=== PATIENT | male | born 1945 | race Caucasian/White ===

== ENCOUNTER 2021-08-31 20:55 | Inpatient (IN) | payer MEDICARE ==
[~2021-08-31] VITALS: Ht 177.8 cm; Wt 64.9 kg
--- NOTE | ~2021-08-31 | EMS ---
[address] [address] EMS Patient Care Report Name: MARCY MCINTOSH Room #: 170-5 ADM IN M.R.#: [id number] Admission: 09/01/21 Attend Phys: Michel Powell MD Discharge: Date of : 41 Report #: [id number] THIS REPORT FOR: //name// Report Transmitted: 09/01/2021 13:18 EMS Care Summary [place], [place]/[facility] Incident [id number] @ 08/31/2021 20:31 Incident Location [address] [place], [place] [id number] Patient MARCY MCINTOSH Male, 75 Years 1945 Patient Address [address] [place], [place] [id number] Patient History None Reported, Patient Allergies No known allergies, Patient Medications None Reported, Chief Complaint weakness Disposition Transported No Lights/[place] Dispatch Reason Sick Person Transported To [facility] Narrative Upon arrival PT was standing outside of apartment complex. PT had a CC of weakness and stated that his had just been diagnosed with covid-19 and PT [address] [address] EMS Patient Care Report Name: MARCY MCINTOSH Room #: 170-5 ADM IN M.Ezequiel.#: [id number] Admission: 09/01/21 Attend Phys: Michel Powell MD Discharge: Date of : 41 Report #: [id number] believes he has contracted the virus as well. PT was assisted to stretcher and taken to back of ambulance for further medical evaluation and intervention. PT was then monitored while en route for any change in condition. Initial Vitals @20:42P: 66,R: 18,BP: 177/78,Pain: 0/10,GCS: 15,SpO2: 94,Revised Trauma: 12, @20:51P: 90,R: 18,BP: 174/78,Pain: 0/10,GCS: 15,SpO2: 94,Revised Trauma: 12, Assessments @20:42MENTAL:No Abnormalities,SKIN:No Abnormalities,HEENT:Head/Face: No Abnormalities,Eyes: No Abnormalities,Neck/Airway: No Abnormalities,LUNG SOUNDS:General: No Abnormalities,Left Upper: No Abnormalities,Right Upper: No Abnormalities,Left Lower: No Abnormalities,Right Lower: No Abnormalities,ABDOMEN:General: No Abnormalities,Left Upper: No Abnormalities,Right Upper: No Abnormalities,Left Lower: No Abnormalities,Right Lower: No Abnormalities,PELVIS//GI:No Abnormalities,EXTREMITIES:Capillary Refill: Left Upper: < 2 Sec,Capillary Refill: Right Upper: < 2 Sec,PULSE:Radial: 2+ Normal,NEURO:No Abnormalities, Impression Generalized Weakness Procedures @20:42 ALS Assessment Response: UnchangedSucceeded Timeline 20:29,Call Received 20:29,Dispatch Notified 20:31,Dispatched 20:31,En Route 20:41,On Scene 20:42,At Patient 20:42,BP: 177/78 M,PULSE: 66,RR: 18 R,SPO2: 94 Ox,ETCO2: ,BG: ,PAIN: 0,GCS: 15, 20:42,Depart Scene 20:42,ALS Assessment,Response: UnchangedSucceeded, 20:51,BP: 174/78 M,PULSE: 90,RR: 18 R,SPO2: 94 Ox,ETCO2: ,BG: ,PAIN: 0,GCS: 15, 20:52,At Destination 21:01,Call Closed Disclaimer v1.1 Copyright 2020 [employer] This EMS Care Summary contains data elements from the applicable legal record (which may be displayed differently). It is designed to provide pertinent information for the following purposes: continuity of care, clinical quality, and state data reporting. The complete legal record is available to ED staff [address] [address] EMS Patient Care Report Name: MARCY MCINTOSH Room #: 170-5 ADM IN M.R.#: [id number] Admission: 09/01/21 Attend Phys: Michel Powell MD Discharge: Date of : 41 Report #: [id number] and administrators of the receiving hospital in [employer]'s Patient Tracker. All data is provided "as is."
[2021-08-31 20:56] VITALS: BP 179/83
[2021-08-31 21:51] LABS: BE(vivo) -2.2 mmol/L (-2 to +3); PO2 68.4 mmHg (80.0-100.0); pH 7.471 (7.360-7.450)
[2021-08-31 22:02] LABS: URINE BILIRUBIN NEGATIVE (Negative); URINE BLOOD 3+ (Negative); URINE CLARITY CLEAR; URINE COLOR YELLOW; URINE GLUCOSE-RANDOM* NEGATIVE (Negative); URINE KETONES TRACE (Negative); URINE LEUKOCYTES-REFLEX NEGATIVE (Negative); URINE NITRITE-REFLEX NEGATIVE (Negative); URINE PROTEIN (DIPSTICK) NEGATIVE (Negative); URINE UROBILINOGEN 0.2 E.U./dl (0.2-1.0)
[2021-08-31 22:29] LABS: ABSOLUTE NEUTROPHILS 4.1 thou/uL (1.4-8.2); BASOPHILS 0.3 % (0.0-2.0); HEMATOCRIT 42.6 % (42.0-52.0); HEMOGLOBIN 14.2 gm/dL (14.0-18.0); LYMPHOCYTES 10.6 % (24.0-44.0); MCH 32.4 pg (26.0-34.0); MCHC 33.4 g/dL (28.0-37.0); MONOCYTES 9.6 % (1.0-8.0); PLATELET COUNT 154 thou/uL (150-400); POLYS 79.5 % (36.0-66.0); RBC 4.39 mil/uL (4.50-6.00); RDW 12.9 % (10.5-14.5); WBC 5.1 thou/uL (4.0-11.0)
[2021-08-31 22:39] LABS: CALCIUM 8.5 mg/dL (8.5-10.1); POTASSIUM 3.8 mmol/L (3.5-5.1)
[2021-08-31 22:49] LABS: ALBUMIN 3.1 g/dL (3.4-5.0); DIRECT BILIRUBIN 0.2 mg/dL (<0.1-0.2); MAGNESIUM 1.5 mg/dL (1.8-2.4); PHOSPHORUS 2.8 mg/dL (2.5-4.9); TOTAL BILIRUBIN 0.6 mg/dL (0.2-1.0); TOTAL PROTEIN 6.1 g/dL (6.4-8.2)
[2021-08-31 23:08] LABS: SQUAMOUS 4-10 Moderate /LPF (0-3); URINE WBC-REFLEX 0-5 Rare /HPF (0-5)
[2021-08-31 23:09] LABS: BACTERIA-REFLEX 1-9 Few /HPF (None Seen); CASTS None Seen /LPF (None Seen); CRYSTALS None Seen /LPF (None Seen); MUCUS 0-3 Light strn/LPF (None Seen)
[2021-09-01] MEDS ORDERED: SYMBICORT160 MCG/4. INH (02:04)
[2021-09-01] MEDS ORDERED: TOVIAZ8 MG PO (02:04)
[2021-09-01] MEDS ORDERED: ARICEPT10 M1 PO (02:04)
[2021-09-01] MEDS ORDERED: ATORVASTATIN CA80 MG PO (02:05)
[2021-09-01] MEDS ORDERED: FLOMAX0.4 MG PO (02:05)
[2021-09-01 06:38] LABS: HEMATOCRIT 40.1 % (42.0-52.0); HEMOGLOBIN 13.6 gm/dL (14.0-18.0); MCH 32.9 pg (26.0-34.0); MCV 96.8 fL (80.0-100.0); RBC 4.14 mil/uL (4.50-6.00); RDW 12.9 % (10.5-14.5); WBC 5.5 thou/uL (4.0-11.0)
[2021-09-01 06:49] LABS: ALBUMIN 2.8 g/dL (3.4-5.0); CREATININE 0.9 mg/dL (0.7-1.3); POTASSIUM 3.6 mmol/L (3.5-5.1); TOTAL BILIRUBIN 0.5 mg/dL (0.2-1.0); TOTAL PROTEIN 5.6 g/dL (6.4-8.2)
--- NOTE | 2021-09-01 07:07 | EKG ---
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
[2021-09-01 15:20] VITALS: BP 146/50
[2021-09-01 19:41] VITALS: BP 137/83
[2021-09-01 23:44] VITALS: BP 127/71
[2021-09-02 05:20] VITALS: BP 125/66
[2021-09-02 07:24] VITALS: BP 131/59
--- NOTE | 2021-09-02 08:43 | HC ---
[facility] [place] [address] CONSULTATION Name: MARCY MCINTOSH Room #: 350-P ADM IN ..#: [id number] Admission: 09/01/21 Attend Phys: Michel Powell MD Discharge: Date of : 41 Report #: [id number] THIS REPORT FOR: cc: [facility] - Clinic physician unknown [facility] - Clinic physician unknown Vasile Garcia MD ~ DATE OF SERVICE: 09/01/2021 INFECTIOUS DISEASE CONSULTATION ATTENDING PHYSICIAN: Dr. Powell. REASON FOR EVALUATION: COVID-19 infection. HISTORY OF PRESENT ILLNESS: Chart reviewed. The patient examined. This is a 75-year-old with known history of chronic obstructive pulmonary disease with previous history of lung cancer. He had received chemotherapy, although not currently for the past several months, who was confirmed to have COVID-19 infection. He has been ill for the last several days. Admits to some dyspnea and some degree of cough that has been nonproductive. He had a poor appetite and p.o. intake. Does have some nausea with dry heaves, some loose stools, generally progressive weakness. He was evaluated. A chest x-ray was fairly unremarkable except for borderline saturations on room air. Lactic acid is 1.0. Procalcitonin less than 0.05. Blood cultures collected on admission are negative thus far. He was empirically started on therapy with ceftriaxone and azithromycin. ALLERGIES: None known. CURRENT MEDICATIONS: Currently include atorvastatin, enoxaparin, thiamine, multivitamin, tamsulosin, donepezil, famotidine, zinc, cholecalciferol, ascorbic acid, dexamethasone, budesonide, azithromycin, ceftriaxone. PAST MEDICAL HISTORY: As described above, has underlying COPD with previous history of lung cancer, presumably in remission, hyperlipidemia, BPH, dementia. SOCIAL HISTORY: Smoke cigarettes a pack a day, daily ethanol. FAMILY HISTORY: Noncontributory. REVIEW OF SYSTEMS: Otherwise, unremarkable. PHYSICAL EXAMINATION: GENERAL: He appears chronically ill. He is pleasant, cooperative, appears mildly encephalopathic, undernourished. VITAL SIGNS: Temperature 97.7, pulse 66, respirations 12, blood pressure [facility] [address] [place] [address] CONSULTATION Name: MARCY MCINTOSH Room #: 350-P [facility] IN .R.#: [id number] Admission: 09/01/21 Attend Phys: Michel Powell MD Discharge: Date of : 41 Report #: [id number] 127/39. SKIN: Warm, dry, no rashes. HEENT: Normocephalic. Extraocular muscles intact. NECK: Supple. LUNGS: Overall diminished breath sounds, intermittent wheezes. Few scattered coarse sounds. HEART: Regular. I do not appreciate a murmur. ABDOMEN: Slightly distended, generally soft, nontender. EXTREMITIES: No cyanosis. GENITOURINARY AND RECTAL: Deferred. LABORATORY DATA: Electrolytes: Sodium 135, potassium 3.6, chloride 102, bicarbonate is 20, anion gap of 13, BUN and creatinine 12 and 0.9, glucose of 102, AST 44, ALT of 44, albumin 2.8, total protein 5.6. Blood cultures sterile thus far. CBC: White count of 5.5, H and H 13.6 and 40.1, platelets of 140. Urinalysis, 0-5 white cells. Influenza antigen was negative. ProBNP of 566. Coronavirus testing was positive. Chest x-ray as described above without acute process. ASSESSMENT AND PLAN: COVID-19 infection. The patient has got underlying lung disease as well as history of lung cancer. It is not clear the degree of immunosuppression, has not been on chemotherapy, although appears to be malnourished and appropriate risks for clinical deterioration. This point, would hold off on remdesivir, although continue corticosteroids and vitamins. In the event of worsening, would institute this within the 10-day frame. I will continue empiric antibacterial therapy at this point, remains quite tenuous. Continue to monitor expectantly. <ELECTRONICALLY SIGNED> By: Vasile Garcia MD 09/02/21 0843 [id number] Vasile Garcia MD /nt
[2021-09-02 15:15] VITALS: BP 148/62
[2021-09-02 20:33] VITALS: BP 163/60
[2021-09-03 00:03] VITALS: BP 145/45
[2021-09-03 02:44] LABS: ABSOLUTE NEUTROPHILS 4.9 thou/uL (1.4-8.2); BASOPHILS 0.7 % (0.0-2.0); HEMATOCRIT 37.5 % (42.0-52.0); HEMOGLOBIN 12.7 gm/dL (14.0-18.0); LYMPHOCYTES 14.7 % (24.0-44.0); MCH 32.7 pg (26.0-34.0); MCV 96.2 fL (80.0-100.0); MONOCYTES 7.2 % (1.0-8.0); PLATELET COUNT 152 thou/uL (150-400); POLYS 77.4 % (36.0-66.0); RBC 3.89 mil/uL (4.50-6.00); RDW 13.4 % (10.5-14.5); WBC 6.4 thou/uL (4.0-11.0)
[2021-09-03 05:24] VITALS: BP 153/47
[2021-09-03 08:58] VITALS: BP 137/55
[2021-09-03 16:46] VITALS: BP 132/56
[2021-09-03 20:46] VITALS: BP 139/66
[2021-09-04 04:02] VITALS: BP 145/52
[2021-09-04 08:28] VITALS: BP 146/67
[2021-09-04] MEDS ORDERED: PREDNISONE 10 M10 M1 PO (13:30)
[2021-09-04] MEDS ORDERED: VENTOLIN HFA INH8 GM INH (13:30)
[2021-09-04] MEDS ORDERED: CEFDINIR300 MG PO (13:30)
[2021-09-04 13:48] VITALS: BP 146/67
== END 2021-09-04 16:08 | disposition home or self-care (01) | DRG 177 ==
LOC: ER 20:55 → EROBS 09-01 00:13 → 3W 09-01 15:19
PROVIDERS: Emergency Medicine; Nurse Practitioner Family; ADMIT Hospitalist; ATTEND Hospitalist
DX: U07.1 COVID-19 (principal); J96.01 Acute respiratory failure with hypoxia; J12.82 Pneumonia due to coronavirus disease 2019; E46 Unspecified protein-calorie malnutrition; J44.0 Chronic obstructive pulmonary disease with (acute) lower respiratory infection; J44.1 Chronic obstructive pulmonary disease with (acute) exacerbation; T50.905A Adverse effect of unspecified drugs, medicaments and biological substances, initial encounter; I10 Essential (primary) hypertension; N40.0 Benign prostatic hyperplasia without lower urinary tract symptoms; R53.81 Other malaise; E86.0 Dehydration; E78.5 Hyperlipidemia, unspecified; F03.90 Unspecified dementia, unspecified severity, without behavioral disturbance, psychotic disturbance, mood disturbance, and anxiety; F17.210 Nicotine dependence, cigarettes, uncomplicated; Z92.21 Personal history of antineoplastic chemotherapy; Z71.6 Tobacco abuse counseling; Z85.118 Personal history of other malignant neoplasm of bronchus and lung; Z68.20 Body mass index [BMI] 20.0-20.9, adult; Y92.89 Other specified places as the place of occurrence of the external cause; Z79.899 Other long term (current) drug therapy
CPT/HCPCS: 10080